=== PATIENT | female | born 1990 | race Two or more races ===

== ENCOUNTER 2022-06-08 07:44 | Emergency (ER) | payer OTHER ==
[~2022-06-08] VITALS: Ht 154.9 cm; Wt 63.5 kg
== END 2022-06-08 11:36 | disposition home or self-care (01) ==
LOC: ER 07:44
DX: J11.1 Influenza due to unidentified influenza virus with other respiratory manifestations (principal); A49.3 Mycoplasma infection, unspecified site; Z20.822 Contact with and (suspected) exposure to COVID-19